=== PATIENT | female | born 1975 | race Caucasian/White ===

== ENCOUNTER 2017-01-31 15:56 | Emergency (ER) | payer OTHER ==
[~2017-01-31] VITALS: Ht 165.1 cm; Wt 90.0 kg
[2017-01-31 16:01] VITALS: TEMP 36.9; Ht 165.1 cm; Wt 90.0 kg
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
--- NOTE | 2017-01-31 17:00 | DIAGNOSTIC IMAGING REPORT ---
HEAD WITHOUT CONTRAST (CT) CLINICAL HISTORY: 41 years-old Female presenting with closed head injury 10 days ago, continued sxs. TECHNIQUE: Multidetector CT imaging of the head was performed without the use of intravenous contrast. IV contrast: None. A dose lowering technique was used consistent with the principles of ALARA (as low as reasonably achievable). COMPARISON: None. CT DOSE (mGy.cm): The estimated cumulative dose is 638.56 mGycm. FINDINGS: Purse Maker topogram: Unremarkable. Ventricles and sulci normal in size. Brain parenchyma normal in appearance with preserved zavala-white differentiation. No mass effect or midline shift. No hemorrhage or acute territorial infarct. No extra-axial fluid collection. Paranasal sinuses and mastoid air cells clear. Calvarium intact. IMPRESSION: 1. No acute intracranial abnormality. Electronically signed by: Bernardino Francis M.D. 01/31/2017 4:59 PM Dictated Date/Time: 01/31/2017 4:58 PM
[2017-01-31 17:24] VITALS: BP 123/76; PULSE 79; O2SAT 95
[2017-01-31] MEDS ORDERED: SPIR25TA PO (17:47)
[2017-01-31] MEDS ORDERED: MISCCAP80 PO (17:47)
[2017-01-31] MEDS ORDERED: CHOL2000 PO (17:47)
[2017-01-31] MEDS ORDERED: SALI0.6510 NAE (17:47)
[2017-01-31] MEDS ORDERED: VITA400C3 PO (17:47)
[2017-01-31] MEDS ORDERED: IBUP-1277 PO (17:47)
[2017-01-31] MEDS ORDERED: ZOLP5TAB PO (17:47)
[2017-01-31] MEDS ORDERED: LEVO5TAB2 PO (17:47)
[2017-01-31] MEDS ORDERED: MULT-506 PO (17:47)
[2017-01-31] MEDS ORDERED: ADVIN10/60 INH (17:47)
[2017-01-31] MEDS ORDERED: PHEN37.585 PO (17:47)
[2017-01-31] MEDS ORDERED: MONT1TAB3 PO (17:47)
== END 2017-01-31 17:25 | disposition home or self-care (01) ==
LOC: C.EDB 15:58 → C.EDD 17:25
DX: S06.0X0A Concussion without loss of consciousness, initial encounter (principal); V40.6XXA Car passenger injured in collision with pedestrian or animal in traffic accident, initial encounter; Z87.891 Personal history of nicotine dependence; Z90.710 Acquired absence of both cervix and uterus